=== PATIENT | female | born 1985 | race Caucasian/White ===

== ENCOUNTER 2021-02-25 05:30 | Day surgery (SDC) | payer MEDICAID, SELFPAY ==
[~2021-02-25] VITALS: Ht 154.9 cm; Wt 70.8 kg
[2021-02-25 06:27] LABS: HCG,QUAL RESULT NEGATIVE (NEGATIVE)
[2021-02-25] MEDS ORDERED: ONDANSETRON HCL 4 MG/2 ML VIAL IVP PRN (08:45)
[2021-02-25] MEDS ORDERED: HYDROmorphone 1 MG/ML INJ. CARTRIDGE IVP PRN ×2 (08:45)
[2021-02-25] MEDS ORDERED: DEXAMETHASONE SOD PHOSPHATE 4 MG/ML VIAL ONE (08:49)
[2021-02-25] MEDS ORDERED: SUGAMMADEX SODIUM 200 MG/2 ML VIAL IV ONE (08:49)
[2021-02-25] MEDS ORDERED: KETOROLAC TROMETHAMINE 30 MG VIAL ONE (08:49)
[2021-02-25] MEDS ORDERED: ONDANSETRON HCL 4 MG/2 ML VIAL ONE (08:49)
[2021-02-25] MEDS ORDERED: HYDROmorphone 2 MG/ML VIAL ONE (08:49)
[2021-02-25] MEDS ORDERED: DESFLURANE 15 MIN GAS INH ONE (08:49)
[2021-02-25] MEDS ORDERED: NS IRRIG SOLN 1000 ML IR ONE (08:49)
[2021-02-25] MEDS ORDERED: LR 1,000 ML IV.SOLN IV ONE (08:49)
[2021-02-25] MEDS ORDERED: SUCCINYLCHOLINE CHLORIDE 20 MG/ML(QUELICIN) ONE (08:49)
[2021-02-25] MEDS ORDERED: ROCURONIUM BROMIDE 10 MG/ML (ZEMURON) ONE (08:49)
[2021-02-25] MEDS ORDERED: PROPOFOL 200MG/ 20ML VIAL (DIPRIVAN) IV ONE (08:49)
[2021-02-25] MEDS ORDERED: fentaNYL CITRATE/PF 100 MCG/2 ML AMP ONE (08:49)
[2021-02-25 11:25] VITALS: BP_SYST 121
== END 2021-02-25 10:30 | disposition home or self-care (01) ==
LOC: SDS 05:30 → SMU 05:30 → SDS 10:30
PROVIDERS: ATTEND Obstetrics & Gynecology
DX: Z30.2 Encounter for sterilization (principal)
CPT/HCPCS: 58661; 84703; C1727; U0003; C9399; J0330; J1100; J1170; J1885; J2405; J2704; J3010; J7120